=== PATIENT | female | born 1960 | race Native Hawaiian/Other Pacific Islander ===

== ENCOUNTER 2022-12-08 15:27 | Emergency (ER) | payer OTHER ==
[~2022-12-08] VITALS: Ht 160 cm; Wt 96.2 kg
[2022-12-08 16:00] VITALS: BP 127/58; TEMP 97.3
[2022-12-08 16:53] LABS: PLATELET COUNT 336 K/uL (152-353)
[2022-12-08 17:06] LABS: POTASSIUM 3.9 mmol/L (3.6-5.2); SODIUM 136 mmol/L (136-145)
== END 2022-12-08 18:36 | disposition home or self-care (01) ==
LOC: ED 15:27
PROVIDERS: Emergency Medicine Emergency Medical Services
DX: J20.9 Acute bronchitis, unspecified (principal)
CPT/HCPCS: 36415; 80053; 81002; 83735; 84443; 84484; 85027; 93005; 96361; 96365; 99284; J0696